=== PATIENT | male | born 1990 | race Caucasian/White ===

== ENCOUNTER 2024-01-02 23:27 | Emergency (ER) | payer BC ==
[~2024-01-02] VITALS: Ht 182.9 cm; Wt 148.3 kg
[2024-01-02 23:32] VITALS: TEMP 98
[2024-01-03] MEDS: acetaminophen 325mg tablet PO ONE (00:55)
[2024-01-03 01:23] LABS: D-DIMER 0.33 MG/L FEU (0-0.50)
[2024-01-03 02:19] VITALS: BP 133/98; PULSE 74; RESP 16; O2SAT 96
== END 2024-01-03 02:18 | disposition home or self-care (01) ==
LOC: ER 23:28
DX: M25.561 Pain in right knee (principal)
CPT/HCPCS: 36415; 85379; 99283